=== PATIENT | female | born 1965 ===

== ENCOUNTER 2025-04-24 06:10 | Day surgery (SDC) | payer OTHER ==
[2025-04-17 10:19] VITALS: BP 130/82
[2025-04-17 10:31] LABS: BASO % 0.2 % (0.1-1.2); EOS # 0.11 (0.04-0.54); EOS % 1.3 % (0.7-7.0); HEMATOCRIT 41.8 % (34.1-44.9); HEMOGLOBIN 14.3 g/dL (11.2-15.7); LYMPH # 2.85 (1.18-3.74); LYMPH % 33.5 % (19.3-53.1); MEAN CORPUSCULAR HEMOGLOBIN 32.9 pg (25.6-32.2); MONO # 0.71 (0.24-0.82); MONO % 8.4 % (4.7-12.5); NEUT # 4.79 (1.56-6.13); NEUT % 56.4 % (34.0-71.1); PLATELET COUNT 200 K/uL (163-369); RED BLOOD COUNT 4.35 M/uL (3.93-5.22); RED CELL DISTRIBUTION WIDTH 12.1 % (11.6-14.4)
[2025-04-17 10:49] LABS: URINE APPEARANCE Clear; URINE BILIRRUBIN Negative (NEGATIVE); URINE BLOOD Negative; URINE COLOR Yellow; URINE GLUCOSE Negative (NEGATIVE); URINE KETONE Negative (NEGATIVE); URINE LEUKOCYTE Negative; URINE NITRATE Negative; URINE PROTEIN Negative (NEGATIVE); URINE UROBILINOGEN 0.2 E.U./dl
[2025-04-17 10:50] LABS: URINE BACTERIA 124.7 uL (0.0-1933); URINE EPITHELIAL CELLS 5.8 uL (0.0-38.8); URINE RBC 16.9 uL (0.0-20.8); URINE WBC 2.8 uL (0.0-23.2)
[2025-04-17 11:03] LABS: PARTIAL THROMBOPLASTIN TIME 26.1 SECONDS (22.0-34.0); PROTHROMBIN TIME 10.9 SECONDS (9.0-11.5)
[2025-04-17 11:14] LABS: URINE CAST 0.14 uL (0.0-1.40)
[2025-04-17 11:37] LABS: ALBUMIN 3.9 gm/dL (3.4-5.0); BILIRUBIN TOTAL 0.38 mg/dL (0.3-1.2); CALCIUM 8.9 mg/dL (8.5-10.1); CREATININE SERUM 0.82 mg/dL (0.55-1.02); GFR 70.87; GLOBULINA 3.1 G/DL (2.4-3.5); POTASSIUM 4.26 mEq/L (3.5-5.1)
[~2025-04-24] VITALS: Ht 160 cm; Wt 79.4 kg
[~2025-04-24 06:10] MED LIST: DETROL 4 MG; RISPERIDONE1 MG
[2025-04-24] MEDS ORDERED: GENTAMICIN SULFATE 40 MG/ML VIAL ONE (07:58)
[2025-04-24] MEDS ORDERED: POVIDONE-IODINE 118 ML BOTT TOP ONE (09:51)
[2025-04-24] MEDS ORDERED: DOXYCYCLINE HY100 M2 PO (11:35)
[2025-04-24] MEDS ORDERED: IBU600 MG PO (11:36)
== END 2025-04-24 15:50 | disposition home or self-care (01) ==
LOC: CIR.AMB 06:10
PROVIDERS: ATTEND Obstetrics & Gynecology
DX: D25.0 Submucous leiomyoma of uterus (principal); N84.0 Polyp of corpus uteri; N95.0 Postmenopausal bleeding